=== PATIENT | male | born 1985 | race African-American/Black ===

== ENCOUNTER 2018-10-15 15:13 | Emergency (ER) | payer MEDICAID, OTHER ==
[~2018-10-15] VITALS: Ht 157.5 cm; Wt 53.9 kg
[2018-10-15] MEDS ORDERED: FAMOTIDINE 20MG/2ML VIAL IV STA (16:36)
[2018-10-15] MEDS ORDERED: KETOROLAC 30MG/ML VIAL IV STA (16:36)
[2018-10-15] MEDS ORDERED: MORPHINE SULFATE 4 MG/ML CPJ (NOT FOR IM USE) IV STA (16:36)
[2018-10-15] MEDS ORDERED: MAGNESIUM/ALUMINUM HYDROXIDE/SIMETHICONE 30ML UDC PO STA (16:36)
[2018-10-15] MEDS ORDERED: ONDANSETRON HCL 4MG/2ML INJ IV STA (16:36)
[2018-10-15] MEDS ORDERED: SODIUM CHLORIDE 0.9% 1,000 ML IV ONE (16:36)
[2018-10-15 17:50] LABS: EOSINOPHILS % 5.6 % (0.0-5.0); HEMATOCRIT. 41.9 % (42.0-52.0); HEMOGLOBIN. 13.9 g/dL (14.0-18.0); LYMPHOCYTES % 44.3 % (20.0-50.0); MEAN CORPUSCULAR HEMOGLOBIN 33.1 pg (28.0-32.0); MEAN CORPUSCULAR VOLUME 99.4 fL (80.0-94.0); MEAN PLATELET VOLUME 9.6 fl (7.4-10.4); MONOCYTES % 5.2 % (2.0-8.0); NEUTROPHILS % 43.9 % (40.0-76.0); PLATELET 211 x1000/uL (130-400); RED BLOOD CELL COUNT 4.21 mill/uL (4.7-6.1); RED CELL DISTRIBUTION WIDTH 12.9 % (11.6-14.6)
[2018-10-15 17:51] LABS: CHLORIDE 106 mEq/L (98-107)
[2018-10-15 17:53] LABS: PROTHROMBIN TIME 10.3 sec (9.1-11.1)
[2018-10-15 17:57] LABS: ETHANOL BLOOD < 10 mg/dL
[2018-10-15 18:01] LABS: CREATINE KINASE 289 IU/L (39-308)
[2018-10-15 18:11] LABS: CLARITY URINE CLEAR (CLEAR); COLOR URINE YELLOW (YELLOW); KETONES URINE NEGATIVE (NEGATIVE); LEUKOCYTE ESTERASE URINE NEGATIVE (NEGATIVE); NITRITE URINE NEGATIVE (NEGATIVE); OCCULT BLOOD URINE NEGATIVE (NEGATIVE); PH URINE 6.5 (4.5-8.0); PROTEIN URINE NEGATIVE (NEGATIVE); SPECIFIC GRAVITY URINE 1.025 (1.005-1.030)
[2018-10-15 18:41] LABS: *AMPHETAMINES SCREEN URINE NEGATIVE (NEGATIVE); *BARBITURATES SCREEN URINE NEGATIVE (NEGATIVE); *BENZODIAZEPINES SCREEN URINE NEGATIVE (NEGATIVE); *COCAINE SCREEN URINE PRESUMTIVE POSITIVE (NEGATIVE)
[2018-10-15 18:42] LABS: CANNABINOID URINE SCREEN PRESUMTIVE POSITIVE (NEGATIVE); METHADONE URINE SCREEN NEGATIVE (NEGATIVE); OPIATES URINE SCREEN NEGATIVE (NEGATIVE); PHENCYCLIDINE URINE SCREEN NEGATIVE (NEGATIVE)
[2018-10-15 20:19] VITALS: BP 118/65
== END 2018-10-15 20:21 | disposition home or self-care (01) ==
LOC: ER 15:13
DX: K29.70 Gastritis, unspecified, without bleeding (principal); F14.10 Cocaine abuse, uncomplicated; F12.90 Cannabis use, unspecified, uncomplicated
CPT/HCPCS: 36415; 74018; 80053; 80305; 81003; 82550; 83690; 84484; 85025; 85610; 96361; 96374; 96375; 99284; G0482; J1885; J2270; J2405; J3490; J7030

== ENCOUNTER 2019-05-07 20:13 | Emergency (ER) | payer MEDICAID ==
[~2019-05-07] VITALS: Ht 157.5 cm; Wt 55.0 kg
[2019-05-07] MEDS ORDERED: HYDROCODONE/ACETAMINOPHEN 5/325MG TABLET PO ONE (23:00)
[2019-05-07 23:09] VITALS: BP 121/75
== END 2019-05-07 23:09 | disposition home or self-care (01) ==
LOC: ER 20:13
DX: K64.4 Residual hemorrhoidal skin tags (principal)
CPT/HCPCS: 99282; 99283

== ENCOUNTER 2020-06-04 19:25 | Emergency (ER) | payer MEDICAID ==
[~2020-06-04] VITALS: Ht 157.5 cm; Wt 54.0 kg
[~2020-06-04 19:25] MED LIST: PANT40TA4 MT
[2020-06-04 19:56] VITALS: BP 111/64
== END 2020-06-04 21:12 | disposition home or self-care (01) ==
LOC: ER 19:25
DX: L02.01 Cutaneous abscess of face (principal); L73.1 Pseudofolliculitis barbae
CPT/HCPCS: 99283

== ENCOUNTER 2020-06-06 07:46 | Emergency (ER) | payer MEDICAID ==
[~2020-06-06] VITALS: Ht 165.1 cm; Wt 55.0 kg
[2020-06-06 08:08] VITALS: BP 122/72
== END 2020-06-06 08:26 | disposition home or self-care (01) ==
LOC: ER 08:09
DX: Z02.89 Encounter for other administrative examinations (principal)
CPT/HCPCS: 99281

== ENCOUNTER 2020-06-12 23:40 | Emergency (ER) | payer MEDICAID, OTHER ==
[~2020-06-12] VITALS: Ht 157.5 cm; Wt 54.4 kg
[2020-06-13] MEDS ORDERED: IBUPROFEN 600MG TABLET PO STA (00:26)
[2020-06-13 01:08] VITALS: BP 111/59
== END 2020-06-13 01:10 | disposition home or self-care (01) ==
LOC: ER 23:40
DX: J06.9 Acute upper respiratory infection, unspecified (principal); R51 Headache; R50.9 Fever, unspecified
CPT/HCPCS: 99282

== ENCOUNTER 2020-06-15 08:14 | Emergency (ER) | payer MEDICAID, OTHER ==
[~2020-06-15] VITALS: Ht 157.5 cm; Wt 54.0 kg
[2020-06-15] MEDS ORDERED: ONDANSETRON HCL 4MG/2ML INJ IV STA (08:49)
[2020-06-15] MEDS ORDERED: SODIUM CHLORIDE 0.9% 1,000 ML IV ONE (08:49)
[2020-06-15] MEDS ORDERED: FAMOTIDINE 20MG/2ML VIAL IV STA (08:49)
[2020-06-15 09:24] LABS: BASOPHILS % 0.6 % (0.0-2.0); EOSINOPHILS % 3.4 % (0.0-5.0); HEMATOCRIT. 44.9 % (42.0-52.0); LYMPHOCYTES % 17.9 % (20.0-50.0); MEAN CORPUSCULAR HEMOGLOBIN 32.6 pg (28.0-32.0); MEAN CORPUSCULAR VOLUME 97.4 fL (80.0-94.0); MEAN PLATELET VOLUME 8.9 fl (7.4-10.4); MONOCYTES % 12.9 % (2.0-8.0); NEUTROPHILS % 65.2 % (40.0-76.0); PLATELET 210 x1000/uL (130-400); RED BLOOD CELL COUNT 4.61 mill/uL (4.7-6.1); RED CELL DISTRIBUTION WIDTH 13.1 % (11.6-14.6)
[2020-06-15 09:30] LABS: CHLORIDE 105 mEq/L (98-107)
[2020-06-15 11:21] LABS: CLARITY URINE CLEAR (CLEAR); COLOR URINE DK YELLOW (YELLOW); KETONES URINE TRACE (NEGATIVE); LEUKOCYTE ESTERASE URINE 1+ (NEGATIVE); NITRITE URINE NEGATIVE (NEGATIVE); OCCULT BLOOD URINE NEGATIVE (NEGATIVE); PROTEIN URINE TRACE (NEGATIVE); SPECIFIC GRAVITY URINE 1.027 (1.005-1.030)
[2020-06-15 11:43] VITALS: BP 120/58
== END 2020-06-15 11:52 | disposition home or self-care (01) ==
LOC: ER 08:14
DX: R10.13 Epigastric pain (principal); B34.9 Viral infection, unspecified; F12.10 Cannabis abuse, uncomplicated; F17.210 Nicotine dependence, cigarettes, uncomplicated; Z03.818 Encounter for observation for suspected exposure to other biological agents ruled out; Z98.890 Other specified postprocedural states
CPT/HCPCS: 36415; 80053; 81003; 83690; 85025; 93005; 96361; 96374; 96375; 99284; C9803; J2405; J3490; J7030; U0003

== ENCOUNTER 2020-07-27 08:57 | Emergency (ER) | payer MEDICAID, OTHER ==
[~2020-07-27] VITALS: Ht 157.5 cm; Wt 60.0 kg
[2020-07-27] MEDS ORDERED: ACETAMINOPHEN 325MG TABLET PO ONE (10:00)
[2020-07-27 10:27] VITALS: BP 143/90
== END 2020-07-27 10:33 | disposition home or self-care (01) ==
LOC: ER 09:22
DX: R53.1 Weakness (principal); F12.10 Cannabis abuse, uncomplicated
CPT/HCPCS: 99282

== ENCOUNTER 2020-10-06 14:24 | Emergency (ER) | payer MEDICAID, OTHER ==
[~2020-10-06] VITALS: Ht 157.5 cm; Wt 55.0 kg
[2020-10-06 16:07] VITALS: BP 100/48
== END 2020-10-06 16:09 | disposition home or self-care (01) ==
LOC: ER 14:24
DX: S00.83XA Contusion of other part of head, initial encounter (principal); F12.10 Cannabis abuse, uncomplicated; F17.200 Nicotine dependence, unspecified, uncomplicated; Y04.0XXA Assault by unarmed brawl or fight, initial encounter; Y93.89 Activity, other specified; Y92.89 Other specified places as the place of occurrence of the external cause; Y99.8 Other external cause status
CPT/HCPCS: 99282

== ENCOUNTER 2020-12-09 09:49 | Emergency (ER) | payer MEDICAID, OTHER ==
[~2020-12-09] VITALS: Ht 160 cm; Wt 54.0 kg
[~2020-12-09 09:49] MED LIST changes: -PANT40TA4 MT; +PANT40TA51 MT
[2020-12-09 10:00] VITALS: BP 152/95
[2020-12-09] MEDS ORDERED: ACETAMINOPHEN 325MG TABLET PO ONE (10:15)
== END 2020-12-09 11:11 | disposition home or self-care (01) ==
LOC: ER 09:49
DX: H61.21 Impacted cerumen, right ear (principal); F12.10 Cannabis abuse, uncomplicated
CPT/HCPCS: 93005; 99283

== ENCOUNTER 2024-07-21 21:28 | Emergency (ER) | payer SELFPAY ==
[~2024-07-21] VITALS: Ht 154.9 cm; Wt 64.0 kg
[2024-07-21 21:38] VITALS: TEMP 98.3; O2SAT 100
[2024-07-21 21:39] VITALS: O2SAT 97
[2024-07-21 22:47] LABS: BASOPHILS % 0.8 % (0.0-2.0); EOSINOPHILS % 2.2 % (0.0-5.0); HEMATOCRIT. 42.9 % (42.0-52.0); HEMOGLOBIN. 14.3 g/dL (14.0-18.0); LYMPHOCYTES % 34.2 % (20.0-50.0); MEAN CORPUSCULAR HEMOGLOBIN 32.5 pg (28.0-32.0); MEAN CORPUSCULAR HGB CONC 33.3 g/dL (31.0-37.0); MEAN CORPUSCULAR VOLUME 97.8 fL (80.0-94.0); MEAN PLATELET VOLUME 9.5 fl (7.4-10.4); MONOCYTES % 9.4 % (2.0-8.0); NEUTROPHILS % 53.4 % (40.0-76.0); PLATELET 255 x1000/uL (130-400); RED BLOOD CELL COUNT 4.39 mill/uL (4.7-6.1); RED CELL DISTRIBUTION WIDTH 13.6 % (11.6-14.6); WHITE BLOOD COUNT 6.9 x1000/uL (4.5-11.0)
[2024-07-21 22:53] LABS: CHLORIDE 102 mEq/L (98-107); POTASSIUM 4.3 mEq/L (3.5-5.1); SODIUM 135 mEq/L (136-145)
[2024-07-21 22:54] LABS: CARBON DIOXIDE 29 mEq/L (21-32)
[2024-07-21 22:55] LABS: CALCIUM 10.1 mg/dL (8.7-10.4)
[2024-07-21 22:59] LABS: CREATININE 1.1 mg/dL (0.6-1.3); GLUCOSE 76 mg/dL (70-105)
[2024-07-21 23:00] LABS: TROPONIN I HIGH SENSITIVITY 5 ng/L (3.0-53); UREA NITROGEN BLOOD 19 mg/dL (9-23)
[2024-07-22 01:57] VITALS: BP 128/88; PULSE 101; RESP 20
[2024-07-22] MEDS: KETOROLAC 15MG/ML VIAL IM ONE (01:57)
== END 2024-07-22 03:42 | disposition home or self-care (01) ==
LOC: ER 21:28
DX: R10.9 Unspecified abdominal pain (principal)
CPT/HCPCS: 99285; 71045; 80048; 85025; 84484; 36415; 93005; 74176; 96372; J1885